=== PATIENT | female | born 1985 | race African-American/Black ===

== ENCOUNTER 2022-04-21 11:01 | Emergency (ER) | payer OTHER ==
[~2022-04-21] VITALS: Ht 162.6 cm; Wt 100.0 kg
[~2022-04-21 11:01] MED LIST: NOCURR
[2022-04-21] MEDS ORDERED: IBUPROFEN 600 MG TABLET PO ONE (12:45)
[2022-04-21] MEDS ORDERED: IBUP-1492 PO (14:10)
[2022-04-21] MEDS ORDERED: ACET-3385 PO (14:12)
[2022-04-21 14:30] VITALS: BP 141/79
== END 2022-04-21 15:12 | disposition home or self-care (01) ==
LOC: EMS 11:11
DX: S82.891A Other fracture of right lower leg, initial encounter for closed fracture (principal); W10.8XXA Fall (on) (from) other stairs and steps, initial encounter; Y93.89 Activity, other specified; Y92.89 Other specified places as the place of occurrence of the external cause; Y99.8 Other external cause status
CPT/HCPCS: 29515; 99284; 73590-TC; 73610-TC; 73630-TC; Z7502; Z7610